=== PATIENT | male | born 1960 | race Hispanic/Latino ===

== ENCOUNTER → 2018-01-24 | Day surgery (SDC) | payer OTHER ==
[~2018-01-24] MED LIST: ALEVE; DIOVAN HCT 3201 EACH PO; FENTANYL CITRATE/PF 100MCG/2 ML INJ ONE; GLUCAGON FOR INJ 1 MG VIAL ONE; LIDOCAINE HCL 2% LOCAL INJ 5 ML SDV VIAL INJ ONE; LIPOFEN150 MG PO; MIDAZOLAM HCL 5MG/ML 2ML VIAL ONE; MORPHINE SULFATE 2 MG/ML SYR ONE; NAPROXEN; NEXIUM40 MG PO; OMEGA 3 PO; PANTOPRAZOLE SO40 MG PO; PROPOFOL IV EMULSION 10 MG/ML 50 ML VIAL ONE; VERAPAMIL ER240 MG PO; VITAMIN C1000 MG PO
--- NOTE | 2018-01-24 10:24 | Operative Report ---
DATE OF PROCEDURE: January 24, 2018 PROCEDURE PERFORMED: Esophagogastroduodenoscopy with biopsies and a colonoscopy with polypectomy and biopsies. REFERRING PHYSICIAN: Dr. Chi Madera INDICATIONS FOR EGD: Acid reflux. INDICATIONS FOR COLONOSCOPY: Colorectal cancer screening. MEDICATION: Patient was done under MAC. Please see anesthesiologist note. PROCEDURE IN DETAIL: With the patient in left lateral decubitus position, flexible fiberoptic Olympus gastroscope was introduced into the esophagus under direct visualization without any difficulty. There were some patchy areas of erythema. A raised area of approximately 1.2 cm was noted in the distal esophagus and that was biopsied. The scope was then advanced with ease into the stomach. The mucosa overlying the antrum and the body revealed some patchy areas of intense erythema and low-grade to moderate edema, and biopsies were obtained and sent to stain for H. pylori. The pylorus was of normal contour and shape. It was intubated with ease and the scope was advanced all the way to the second portion of the duodenum. The scope was then withdrawn slowly. Mucosa overlying the proximal second portion and the duodenal bulb appeared to be within normal limits. The scope was then withdrawn back into the stomach and retroflexed, and the mucosa overlying the fundus and the cardia appeared to be within normal limits. The scope was then straightened out. The stomach was decompressed. The scope was subsequently withdrawn. Patient tolerated the procedure well. IMPRESSION: 1. Distal esophagitis, mild. 2. Approximately 1.2 cm raised area, distal esophagus, biopsied. 3. Gastritis, biopsied. Biopsy sent to stain for Helicobacter pylori. PLAN: Follow up histology. Initiate Protonix 40 mg 1 p.o. q.a.m. a.c. The patient was then turned around. After adequate lubrication of the anal canal, the flexible fiberoptic Olympus colonoscope was inserted into the rectum with ease and advanced all the way to the cecum. Mucosa overlying the cecum appeared to be within normal limits. The ileocecal valve was then intubated and the scope was advanced into the terminal ileum. There was an erythematous area noted in the terminal ileum, and the mucosa was somewhat edematous, and biopsies were obtained. The scope was then withdrawn back into the colon. It was then withdrawn slowly and diverticular disease was noted throughout the colon. One polyp was snared from the transverse and 2 polyps were hot biopsied from the transverse colon. There was some patchy intense erythema and low-grade to moderate edema noted in the distal descending and the sigmoid colon, and random biopsies were obtained. One polyp was hot biopsied from the rectum. The scope was then retroflexed into the distal rectum and small internal hemorrhoids were noted, none of which was actively bleeding. The scope was then straightened out. It was subsequently withdrawn. Patient tolerated the procedure well. IMPRESSION: 1. Pandiverticulosis. 2. Transverse colon polyps x3, 1 snared and 2 hot biopsied. 3. Mild patchy left-sided colitis. 4. Rectal polyp, hot biopsied. 5. Internal hemorrhoids, none actively bleeding. PLAN: Follow up histology. Initiate high-fiber low-fat diet. Initiate high-fiber supplement. VSL#3 DS 1 p.o. every day. Patient will need a followup colonoscopy in 3 years. Job#: [id number] cc:CHI MADERA DO
== END | disposition home or self-care (01) ==
LOC: OR 05:59
PROVIDERS: ATTEND Internal Medicine Gastroenterology
DX: K21.0 Gastro-esophageal reflux disease with esophagitis (principal); D12.8 Benign neoplasm of rectum; K63.5 Polyp of colon; K29.50 Unspecified chronic gastritis without bleeding; K51.50 Left sided colitis without complications; K57.30 Diverticulosis of large intestine without perforation or abscess without bleeding; K64.8 Other hemorrhoids; I10 Essential (primary) hypertension; F17.210 Nicotine dependence, cigarettes, uncomplicated; Z01.810 Encounter for preprocedural cardiovascular examination; Z79.82 Long term (current) use of aspirin; Z68.30 Body mass index [BMI] 30.0-30.9, adult
CPT/HCPCS: 43239; 45384; 45385; 93005; J1610; J2001; J2250; J2270